=== PATIENT | female | born 1955 | race Caucasian/White ===

== ENCOUNTER 2020-08-01 06:14 | Outpatient (REF) | payer BC, MEDICARE, SELFPAY ==
[2020-08-01 12:05] LABS: Alanine Aminotransferase 12 U/L (0-31); Aspartate Amino Transferase 15 U/L (5-31); Cholesterol 191 mg/dL; HDL Cholesterol 51 mg/dL; LDL Cholesterol Calculated 114 mg/dl; Triglycerides 131 mg/dL
== END 2020-08-01 06:15 | disposition home or self-care (01) ==
LOC: HO.HMGCX 06:14
PROVIDERS: PCP Internal Medicine; Visit Provider Internal Medicine
DX: E78.5 Hyperlipidemia, unspecified (principal)
CPT/HCPCS: 80061; 84450; 84460

== ENCOUNTER 2020-08-13 16:28 | Emergency (ER) | payer BC, MEDICARE, SELFPAY ==
[2020-08-13 17:00] VITALS: BP 110/62; PULSE 56; RESP 18; TEMP 36.9; O2SAT 98; BMI 30.4
[2020-08-13 19:05] VITALS: BP 109/47; PULSE 48; RESP 17; TEMP 36.6; O2SAT 99
--- NOTE | 2020-08-13 19:23 | ED_ITS ---
HPI - Dizziness General Chief Complaint: Dizziness Stated Complaint: Dizziness after head Injury Time Seen by Provider: 08/13/20 19:16 Source: patient Mode of arrival: ambulatory Limitations: no limitations History of Present Illness HPI Narrative: patient fell on 07/12 hitting her left side of the head the ground went to [facility] had a CT scan of the head which was negative for any acute. Patient was doing fine for 2 weeks for last 1 week patient feeling dizzy which she describes as spinning movement especially when turning his head to the right side patient denies any headache no nausea no v omiting no focal deficit unsteady when ambulates but able to ambulate patient denied any tinnitus no tremors MD elicited complaint: dizziness Pertinent past history: recent head injury Timing: sudden onset Severity: moderate Description: sense of movement, room spinning , off-balance and difficulty walking Context: change in body position History of similar symptoms: No Exacerbating factors: movement/ambulation and change in body position Associated symptoms: nausea Related Data Previous Rx's Medication Instructions Recorded cholecalciferol (vitamin D3) 25 25 mcg PO DAILY #90 cap 07/06/20 mcg (1,000 unit) capsule meclizine 12.5 mg PO TID PRN #20 tab 08/13/20 Allergies Allergy/AdvReac Type Severity Reaction Status Date / Time meperidine [Demerol] AdvReac Unknown nausea and Verified 08/13/20 17:00 vomiting Review of Systems Review of Systems: REVIEW OF SYSTEMS: Pertinent positives and negatives are stated above in the history. GEN: no fevers, chills, fatigue HEENT: no nasal congestion, sore throat, ear pain NEURO: no headache, focal weakness PULM: no cough, shortness of breath CV: no chest pain, palpitations, LE edema ABD: no abdominal pain, nausea, vomiting, diarrhea : no dysuria, urgency, frequency SKIN: no rash ROS otherwise negative x 10 PMFSH Past Medical History Medical History Closed right radial fracture Surgical History History of colonoscopy History of total hysterectomy S/P hip replacement Family History Family History Father Emphysema, unspecified Mother Diabetes mellitus CVD (cardiovascular disease) Myocardial infarction Brother No problems noted. Daughter No problems noted. Daughter No problems noted. Daughter No problems noted. Social History Social History Alcohol intake: never Smoking Status: Current every day smoker Use of substances other than those prescribed or required for medical reasons: No Advance Directives: No Advance Directives Information Provided: No Physical Exam Vital Signs: Vital Signs: Last Vital Signs Temp 97.7 F 08/13/20 20:42 Pulse 61 08/13/20 21:04 Resp 18 08/13/20 20:42 BP 133/61 08/13/20 21:04 Pulse Ox 97 08/13/20 20:42 Body Mass Index 30.4 VITAL SIGNS: Reviewed. GENERAL: Well developed, well nourished, in no acute distress. HEAD: Normocephalic/atraumatic, EYES: PERRLA No pallor/icterus noted OROPHARYNX: Oral mucosa moist no oral lesions tympanic membrane intact both sides NECK: Supple, no adenopathy LUNGS: Normal breath sounds. No adventitious sounds or accessory muscle use CARDIOVASCULAR: Regular rate and rhythm without noted murmurs, no JVD or lower extremity edema. ABDOMEN: Soft, non-tender, non-distended with normal bowel sounds. No rigidity. No guarding. No palpable masses or hernias noted MUSCULOSKELETAL: No tenderness, deformities, EXTREMITIES: No cyanosis or edema. SKIN: no rashes, ulcerations, jaundice, pallor, or petechiae NEUROLOGIC: Alert and oriented x 3. Strength and sensation to light touch were grossly intact normal speech no nystagmus no cerebellar signs tone is normal , tendon reflexes normal MDM - Dizziness MDM Narrative Medical decision making narrative: patient with dizziness clinically BPPV no signs of central lesions no cerebellar signs patient recent head CT scan 07/12 at [facility] which was negative patient feeling slightly better ambulatory the ER now after meclizine, will discharge her home on meclizine Medical Records Attestation: I reviewed the patient's medical records. Lab Data Attestation: I reviewed the patient's lab results. Result diagrams: 08/13/20 19:40 08/13/20 19:40 Labs: Lab Results 08/13/20 08/13/20 Range/Units 19:40 19:40 WBC 7.4 (4.8-10.8) X10*3/uL RBC 3.75 L (4.20-5.50) X10*6/uL Hgb 12.3 (12.0-16.0) g/dl Hct 37.5 (37-47) % MCV 100.0 H (80-98) fL MCH 32.8 (27.0-33.0) pg MCHC 32.8 (31.0-35.0) g/dl RDW 12.7 (11.0-16.0) % Plt Count 185 (160-400) X10*3/uL MPV 10.0 (9.4-12.3) fL Immature Gran % (Auto) 0.1 (0.0-0.4) % Neut % (Auto) 34.0 L (45-73) % Lymph % (Auto) 47.3 H (20-40) % Martin % (Auto) 7.5 (2-11) % Eos % (Auto) 10.0 H (0-4) % Baso % (Auto) 1.1 (0-2) % Lymph # (Auto) 3.5 (1.2-4.9) X10*3/uL Martin # (Auto) 0.6 (0.1-1.2) X10*3/uL Eos # (Auto) 0.7 H (0.0-0.4) X10*3/uL Baso # (Auto) 0.1 (0.0-0.2) X10*3/uL Abs Immat Gran (auto) 0.01 (0.00-0.03) X10*3/uL Absolute Neuts (auto) 2.5 (2.0-8.3) X10*3/uL Absolute Nucleated RBC 0.000 (0.0-0.012) X10*3/uL Nucleated RBC % (auto) 0.0 (0.0-0.2) /100WBC Sodium 135 (135-145) mmol/L Potassium 3.8 (3.3-5.1) mmol/l Chloride 102 (96-108) mmol/L Carbon Dioxide 25 (22-29) mmol/L Anion Gap 12 (12-20) BUN 9 (9-16) mg/dL Creatinine 0.64 (0.5-1.4) mg/dL Estim Creat Clear Calc 80.1 Estimated GFR > 60 Random Glucose 85 (60-115) mg/dL Calcium 9.1 (8.4-10.2) mg/dL Total Bilirubin 0.3 (0.0-1.0) mg/dL Direct Bilirubin 0.2 (0.0-0.5) mg/dL AST 16 (5-31) U/L ALT 12 (0-31) U/L Alkaline Phosphatase 68 (39-117) U/L Total Protein 6.1 L (6.5-8.0) g/dL Albumin 3.8 (3.5-5.0) g/dL Discharge Plan Discharge Clinical Impression: Benign paroxysmal positional vertigo Patient Disposition: Home, Self-Care Instructions: Benign Paroxysmal Positional Vertigo (ED) Additional Instructions: cautions as advised Take medication for dizziness every 8 hours as needed and follow with PCP Prescriptions: New meclizine 12.5 mg tablet 12.5 mg PO TID PRN (Reason: dizziness) Qty: 20 RF: 0 No Action cholecalciferol (vitamin D3) 25 mcg (1,000 unit) capsule 25 mcg PO DAILY Qty: 90 RF: 2 Interventions: ED Discharge Assessment Last Done: 08/13/20 21:24 Discharge Date/Time: 08/13/20 21:48
[2020-08-13] MEDS: Meclizine HCl 25 MG TABLET 50 MG PO (19:41)
[2020-08-13 19:48] LABS: MANUAL DIFF FLAG NO
[2020-08-13 19:52] LABS: Basophils Absolute Auto 0.1 X10*3/uL (0.0-0.2); Basophils Percent Auto 1.1 % (0-2); Eosinophils Absolute Auto 0.7 X10*3/uL (0.0-0.4); Hematocrit 37.5 % (37-47); Hemoglobin 12.3 g/dl (12.0-16.0); Imm Gran Abs Auto 0.01 X10*3/uL (0.00-0.03); Imm Gran Pct Auto 0.1 % (0.0-0.4); Lymphocytes Absolute Auto 3.5 X10*3/uL (1.2-4.9); Lymphocytes Percent Auto 47.3 % (20-40); Mean Corpuscular HGB Conc 32.8 g/dl (31.0-35.0); Mean Corpuscular Hemoglobin 32.8 pg (27.0-33.0); Monocytes Absolute Auto 0.6 X10*3/uL (0.1-1.2); Monocytes Percent Auto 7.5 % (2-11); Neutrophils Absolute Auto 2.5 X10*3/uL (2.0-8.3); Platelet Count 185 X10*3/uL (160-400); Red Blood Count 3.75 X10*6/uL (4.20-5.50); Red Cell Distribution Width 12.7 % (11.0-16.0); White Blood Count 7.4 X10*3/uL (4.8-10.8)
[2020-08-13 20:16] LABS: Alanine Aminotransferase 12 U/L (0-31); Albumin Level 3.8 g/dL (3.5-5.0); Alkaline Phosphatase 68 U/L (39-117); Anion Gap 12 (12-20); Aspartate Amino Transferase 16 U/L (5-31); Bilirubin Direct 0.2 mg/dL (0.0-0.5); Bilirubin Total 0.3 mg/dL (0.0-1.0); Blood Urea Nitrogen 9 mg/dL (9-16); Calcium 9.1 mg/dL (8.4-10.2); Carbon Dioxide 25 mmol/L (22-29); Chloride 102 mmol/L (96-108); Creatinine Clr Calc Pharmacy 80.1; Estimated Glomerular Filt Rate > 60; Glucose Random 85 mg/dL (60-115); Potassium 3.8 mmol/l (3.3-5.1); Sodium 135 mmol/L (135-145); Total Protein 6.1 g/dL (6.5-8.0)
[2020-08-13 20:42] VITALS: BP 114/40; PULSE 46; RESP 18; TEMP 36.5; O2SAT 97
[2020-08-13 20:57] VITALS: BP 118/58; PULSE 45
[2020-08-13 21:02] VITALS: BP 127/56; PULSE 50
[2020-08-13 21:04] VITALS: BP 133/61; PULSE 61
== END 2020-08-13 21:48 | disposition home or self-care (01) ==
PROVIDERS: Emergency Provider Internal Medicine; PCP Internal Medicine
DX: H81.13 Benign paroxysmal vertigo, bilateral (principal); F17.200 Nicotine dependence, unspecified, uncomplicated; Z71.6 Tobacco abuse counseling; Z79.899 Other long term (current) drug therapy
CPT/HCPCS: 36415; 80048; 80076; 85025; 99283; 99284

== ENCOUNTER 2020-09-03 10:06 | Outpatient (REF) | payer BC, MEDICARE, SELFPAY | END 2020-09-03 10:07 | disposition home or self-care (01) | LOC: HO.LAB 10:06 | PROVIDERS: PCP Internal Medicine; Visit Provider Internal Medicine | DX: Z20.828 Contact with and (suspected) exposure to other viral communicable diseases (principal) | CPT/HCPCS: C9803; U0003 ==

== ENCOUNTER 2020-10-11 09:00 | Outpatient (RCR) | payer BC, MEDICARE, SELFPAY ==
[2020-10-05 14:04] VITALS: BP 122/72; PULSE 57; O2SAT 97
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
--- NOTE | 2021-03-18 12:30 | MHC.PT.DC ---
[facility] [place] Office [place] Office [place] Office [address] [phone] F: [phone] F: [phone] F: [phone] F: [phone] Physical Therapy Discharge Report Diagnosis: This is a 65 yo female presenting to skilled PT with a script for history or falling, dizziness and giddiness Date of Surgery: Date of Evaluation: 10/05/20 Date of Discharge: 03/18/21 Treatments to Date: 3 Cancellations to Date: 0 No Shows to Date: 0 Discharge Status: Achieved Goals Improved Function Independent with HEP Discharge Summary: Patient without any nystagmus or dizziness with reassessment of canals. Balance is good with tests. Educated to call office if dizziness returns. Electronically signed by: Nika Lee PT Please sign and return to therapist. Thank you for your referral.
== END 2021-03-18 12:30 | disposition home or self-care (01) ==
LOC: HO.PTCHIC 09:00
PROVIDERS: PCP Internal Medicine; Visit Provider Internal Medicine
DX: R42 Dizziness and giddiness (principal); Z91.81 History of falling
CPT/HCPCS: 95992; 97112; 97162

== ENCOUNTER 2020-10-19 09:36 | Outpatient (REF) | payer BC, MEDICARE, SELFPAY ==
[2020-10-20 13:20] LABS: BV Int Neg Control Negative (Negative); BV Int Pos Control Positive (Positive)
== END 2020-10-19 09:37 | disposition home or self-care (01) ==
LOC: HO.LAB 09:36
PROVIDERS: PCP Internal Medicine; Visit Provider Obstetrics & Gynecology
DX: Z01.419 Encounter for gynecological examination (general) (routine) without abnormal findings (principal); L29.2 Pruritus vulvae
CPT/HCPCS: 87480; 87510; 87660

== ENCOUNTER 2020-11-28 12:17 | Outpatient (REF) | payer BC, MEDICARE, SELFPAY ==
--- NOTE | ~2020-11-28 | US_ITS ---
EXAMINATION: US DIAGNOSTIC ULTRASOUND BREAST, LEFT CLINICAL INFORMATION: Left breast pain. COMPARISON: Mammography of same day as well as studies dating back to January 21, 2010. TECHNIQUE: Ultrasound of the breast is performed with real-time taylor scale imaging and color Doppler. FINDINGS: No abnormal cystic or solid mass or region of abnormal distal sound shadowing identified on targeted ultrasound. No edematous change within soft tissues identified. Results are provided to the patient at time of visit by the technologist. US/US breast LT limited IMPRESSION: There are no significant changes from prior study. ASSESSMENT: BI-RADS 1: Negative RECOMMENDATION: Routine annual mammography screening, due in 6 months.
--- NOTE | ~2020-11-28 | MM_ITS ---
EXAMINATION: MM DIAGNOSTIC DIGITAL BREAST TOMOSYNTHESIS, LEFT Targeted left breast ultrasound CLINICAL INFORMATION: Left mastodynia The lifetime risk of breast cancer based on the Tyrer-Cuzick Model is 4.2%. COMPARISON: Mammography: April 18, 2020 and studies dating back to January 21, 2010 TECHNIQUE: Digital breast tomosynthesis is performed in both the craniocaudal and mediolateral oblique views along with computer-aided detection (CAD). Synthesized 2D images are generated from the tomosynthesis. Targeted left breast ultrasound FINDINGS: The breasts are almost entirely fatty (ACR BI-RADS breast composition Category a). There are no significant masses, abnormal calcifications, or other abnormalities. No abnormal cystic or solid mass or region of abnormal distal sound shadowing identified on targeted ultrasound. No edematous change within soft tissues identified. Results are provided to the patient at time of visit by the technologist. MM/MM tomosynthesis diagnostic LT IMPRESSION: There are no significant changes from prior study. ASSESSMENT: BI-RADS 1: Negative RECOMMENDATION: Routine annual mammography screening, due in 6 months. This patient's information was entered into a reminder system with a target due date for their next mammogram.
== END 2020-11-28 12:18 | disposition home or self-care (01) ==
LOC: HO.MAMMO 12:17
PROVIDERS: PCP Internal Medicine; Visit Provider Obstetrics & Gynecology
DX: N64.4 Mastodynia (principal); R20.8 Other disturbances of skin sensation
CPT/HCPCS: 76642; 77061; 77065

== ENCOUNTER → 2020-12-07 15:10 | Outpatient (BNVA) | payer BC, MEDICARE, SELFPAY | PROVIDERS: Visit Provider Obstetrics & Gynecology ==